=== PATIENT | female | born 1995 | race American Indian/Alaskan Native ===

== ENCOUNTER 2019-03-27 10:35 | Emergency (ER) | payer SELFPAY ==
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
[2019-03-27 10:42] VITALS: BP 124/63
== END 2019-03-27 11:06 | disposition left against medical advice (07) ==
LOC: ED 10:35
DX: M25.561 Pain in right knee (principal)
CPT/HCPCS: 99281